=== PATIENT | female | born 1950 | race Caucasian/White ===

== ENCOUNTER 2016-09-20 19:09 | Emergency (ER) | payer MEDICARE ==
[~2016-09-20] VITALS: Ht 162.6 cm; Wt 45.5 kg
[2016-09-20 19:27] VITALS: BP 125/92; PULSE 108; RESP 22; O2SAT 99
--- NOTE | 2016-09-20 21:44 | ED.REPORT ---
HPI-General Illness Date of Service Sep 20, 2016 ED Provider: Dr. Colby 66 y/o female with a hx of heroin and opiate use presents to the ED complaining of nausea and vomiting for 3 days. The pt has been at crisis center since Tuesday. She was given Suboxone this morning. The pt associates her sx with Suboxone being given too soon from her last heroin use. Nursing Notes Stated Complaint: DETOX, VOMTING X 3 DAYS Chief Complaint: Substance Abuse Nursing Notes Reviewed: Yes Allergies: Coded Allergies: Penicillins (Verified Allergy, Unknown, 09/20/16) General Time Seen by MD: 21:43 Chief Complaint Vomiting Hx Obtained From: Patient Arrived By: Walk-in Sudden in Onset?: Yes Onset Occurred: 3 days ago Symptom Duration: Since onset Severity: Current: No pain currently Severity: Maximum: No pain Recent Healthcare: No recent doctor visit Past Medical History Past Medical History Hep C Past Surgical History none reported Reports: Cholecystectomy Smoking History Current Every Day Smoker Social History Alcohol Use: Denies alcohol use Drug Use: In recovery, THC Ambulatory Status Independent Review of Systems Full Review of Systems Constitutional: Denies: Chills, Fever, Lethargy Eyes: Denies: Blurred left, Blurred right Respiratory: Denies: Dyspnea on exertion, Non-productive cough Cardiovascular: Denies: Chest pain, Dyspnea on exertion GI: Reports: Nausea, Vomiting Female: Denies: Dysuria, Flank pain Musculoskeletal: Denies: Back pain Hematologic: Denies Adenopathy Skin: Denies Bruising Complete sys rev & neg: except as marked. Physical Exam Vital Signs Vital Signs Date Time Temp Pulse Resp B/P Pulse Ox O2 Delivery O2 Flow Rate FiO2 09/21/16 01:50 36.9 68 16 131/67 96 Room Air 09/21/16 00:00 36.8 77 14 137/73 98 Room Air 09/20/16 19:27 36.7 108 22 125/92 99 Room Air Initial VS: Reviewed Head / Eyes: Atraumatic, Normocephalic, PERRL ENT: Mucous membranes moist, Conjunctiva normal, No scleral icterus Neck: Supple, Non-tender, Full range of motion Respiratory: Breath sounds normal, Clear to auscultation, No respiratory distress Cardiovascular: Regular rate & rhythm, Heart sounds normal, Intact distal pulses Abdomen / GI: Soft, Non-tender, No guarding, No rebound, No distention Extremities: Vascular intact, Neuro intact, No swelling, No tenderness Skin: Warm, Dry, No cyanosis Neurologic: Alert, Oriented, Nonfocal General/Constitutional: Awake, Alert, Cooperative Behavior: Positive: Anxious Nauseous Interpretation & Diagnostics Lab Results Interpretation Result Diagram: 09/20/16 2355 09/20/16 2355 Test 09/20/16 21:20 09/20/16 23:55 Urine Color Yellow (YELLOW) Urine Appearance Hazy (CLEAR,HAZY) Urine pH 6.0 (5.0-8.0) Urine Specific [place] 1.024 (1.003-1.035) Urine Protein 30mg/dL (NEG,TRACE) Urine Glucose (UA) Negativemg/dL (NEGATIVE) Urine Ketones 15mg/dL (NEGATIVE) Urine Occult Blood Moderate (NEGATIVE) Urine Nitrite Negative (NEGATIVE) Urine Bilirubin Negative (NEGATIVE) Urine Urobilinogen Normalmg/dL (NORMAL) Urine Leukocyte Esterase Trace (NEGATIVE) Urine RBC 3-10/hpf (0-2) Urine WBC 11-50/hpf (0-5) Urine Epithelial Cells Moderate/hpf (NONE-MOD) Urine Crystals None seen (NONE SEEN) Urine Bacteria Few/hpf (NONE-FEW) Urine Hyaline Casts None/lpf (NONE) Urine Granular Casts None seen (NONE SEEN) Urine Waxy Casts None seen (NONE SEEN) Urine Red Blood Cell Casts None seen (NONE SEEN) Urine White Blood Cell Casts None seen (NONE SEEN) Urine Mucus Present (None Seen) Urine Trichomonas None seen (NONE SEEN) Urine Yeast None (NONE SEEN) Urinalysis Comment None Urine Culture Reflexed Indicated White Blood Count 13.3th/mm3 (3.8-10.1) Red Blood Count 4.93mil/mm3 (3.90-5.20) Hemoglobin 14.7g/dL (12.0-15.6) Hematocrit 42.1% (35.0-46.0) Mean Corpuscular Volume 85.4fL (81-100) Mean Corpuscular Hemoglobin 29.8pg (27.0-35.0) Mean Corpuscular Hemoglobin Concent 34.9% (32.0-37.0) Red Cell Distribution Width 13.0% (12.3-15.4) Platelet Count 354bil/L (150-400) Neutrophils (%) (Auto) 65.2% (40-74) Lymphocytes (%) (Auto) 24.2% (14-46) Monocytes (%) (Auto) 10.2% (4-12) Eosinophils (%) (Auto) 0.1% (0-5) Basophils (%) (Auto) 0% (0-3) Sodium Level 135mEq/L (134-144) Potassium Level 3.3mEq/L (3.5-5.2) Chloride Level 96mEq/L (97-108) Carbon Dioxide Level 18mmol/L (18-29) Blood Urea Nitrogen 19mg/dL (8-27) Creatinine 0.64mg/dL (0.57-1.00) Estimat Glomerular Filtration Rate 132mL/min (>59) Glucose Level 114mg/dL (60-99) Calcium Level 8.2mg/dL (8.5-10.1) Total Bilirubin 0.6mg/dL (0.0-1.2) Aspartate Amino Transf (AST/SGOT) 33U/L (0-50) Alanine Aminotransferase (ALT/SGPT) 27U/L (0-32) Alkaline Phosphatase 70U/L (25-165) Troponin T 0.010ug/L (0.0-0.011) Total Protein 7.3g/dL (6.4-8.4) Albumin 3.8g/dL (3.4-5.0) Hold Obrien Top Tube Received (Received) Pulse Oximetry Interpretation Pulse Oximetry: Pulse Ox normal, On room air ECG Interpretation ECG Interpretation: Normal sinus rhythm. Rate 64. Biatrial enlargement. Time: 22:09 Interpreted by: ED physician Rhythm Strip Interpretation : Rhythm Strip Interpretation: Interpreted by me, Normal sinus rhythm CBC Interpretation WBC elevated BMP / CMP Interpretation BMP/CMP normal Re-Eval/Medical Decision Med Decision/Clinical Course This is a very pleasant 58-year-old female who is detoxing off of heroin. She relapsed on heroin a while back and she has been sobering services on Suboxone. She tells me that she was given Suboxone a bit early and Suboxone makes her vomit and she still had heroin in her system when she started Suboxone. Otherwise she has been vomiting for 2 days and she was sent in for evaluation. Beyond that she is without complaints. She denies headache, chest pain, shortness of breath, diarrhea or significant abdominal pain. On examination she was mildly dehydrated with very benign got exam. Laboratory work showed a mild leukocytosis and otherwise unremarkable. She was hydrated her symptoms were adequately treated discharge or vomiting. She felt warm back to sobering services. I think her detoxing from the drugs and stenting of heroin is a single most important thing she can do for healths Y concur with her going back to sobering services. She is provided with some Zofran to take with her. Source of Hx: Old records Time of Eval: 01:00 Re-Evaluation/Progress Note: Rechecked pt. Discussed lab results, diagnosis and plan to discharge. Pt understands and agrees with the plan. F/U instructions and RTER warning given. All questions addressed. Counseled Regarding: Diagnosis, Lab results, Need for follow-up, When/why to return to ED Discharge & Departure Primary Impression: Vomiting Vomiting type: unspecified Vomiting Intractability: non-intractable Nausea presence: with nausea Qualified Code: R11.2 - Nausea with vomiting, unspecified Additional Impression: Substance abuse Disposition: Home Discharge Condition All VS Reviewed: Yes Condition: Stable Patient Instructions: Acute Nausea and Vomiting (ED) Additional Instructions: Thank you for entrusting us with your care today. Your EKG and lab results were reassuring. Proceed to sobering services. Continue with the Suboxone. Never use heroin again. Zofran 1 every 6-8 hours as needed for nausea. Clear liquid diet for the first 12 hours. You may slowly graduated diet as tolerated. Return if any problems or any new or worrisome symptoms. Follow up with her primary care physician this week as well. Call tomorrow to set this up. Referrals: [facility] Scribe Attestation Portions of this note were transcribed by María Elena Polk. I,, personally performed the history, physical exam and medical decision-making;I reviewed and confirmed the accuracy of the information in the transcribed note. Signed by Mariela Montoya. 09/21/16 02:29 Joe Colby DO Sep 20, 2016 21:44 María Elena Polk Sep 20, 2016 21:50
[2016-09-20] MEDS ORDERED: 0.9% Sodium Chloride 1,000 ML IV ONE (21:50)
[2016-09-20] MEDS: Ondansetron 2 mg/mL 2 mL Inj IVPUSH PRN (22:23)
[2016-09-20 22:58] LABS: APPEARANCE,URINE HAZY (CLEAR,HAZY); COLOR,URINE YELLOW (YELLOW); OCCULT BLOOD,URINE MODERATE (NEGATIVE); UROBILINOGEN,URINE NORMAL (NORMAL)
[2016-09-21] VITALS: BP 137/73; PULSE 77; RESP 14; O2SAT 98
[2016-09-21] MEDS: Ondansetron 2 mg/mL 2 mL Inj IVPUSH PRN (00:03)
[2016-09-21 00:10] LABS: BASOPHILS % (AUTO) 0 % (0-3); EOSINOPHILS % (AUTO) 0.1 % (0-5); MONOCYTES % (AUTO) 10.2 % (4-12); Mean Corpuscular Hemoglobin 29.8 pg (27.0-35.0); Mean Corpuscular Volume 85.4 fL (81-100); NEUTROPHILS % (AUTO) 65.2 % (40-74); Platelet Count 354 bil/L (150-400)
[2016-09-21] MEDS ORDERED: Sodium Chloride LOK Flush 10 mL Syringe IVFLUSH SCH (00:30)
[2016-09-21] MEDS ORDERED: Promethazine Inj 12.5 MG in Dextrose 5%-Pha MIX 50 ML IV ONE (00:40)
[2016-09-21] MEDS ORDERED: _Ondansetron ODT 4 mg Tablet PO PRN (01:40)
[2016-09-21 01:50] VITALS: BP 131/67; PULSE 68; RESP 16; O2SAT 96
== END 2016-09-21 02:44 | disposition home or self-care (01) ==
LOC: SED 19:09
DX: F19.10 Other psychoactive substance abuse, uncomplicated (principal); R11.2 Nausea with vomiting, unspecified; F17.200 Nicotine dependence, unspecified, uncomplicated; Z88.0 Allergy status to penicillin
CPT/HCPCS: 36415; 80053; 81000; 84484; 85025; 87086; 87088; 93005; 96361; 96374; 96375; 96376; 99285; J2060; J2405; J2550; J7030